=== PATIENT | male | born 1995 | race Caucasian/White ===

== ENCOUNTER 2017-07-22 21:28 | Emergency (ER) | payer OTHER ==
[~2017-07-22] VITALS: Ht 167.6 cm; Wt 74.1 kg
[2017-07-23] MEDS ORDERED: BACITRACIN 0.9 GM PACKET OINTMENT TP ONE (00:30)
[2017-07-23] MEDS ORDERED: PERTUSS(ACELL),DIPH,TET VAC/PF 0.5 ML VIAL IM ONE (00:30)
[2017-07-23] MEDS ORDERED: BUPIVACAINE HCL/PF 0.25% 10 ML VIAL INJ ONE (00:30)
[2017-07-23 01:24] VITALS: BP 141/93
== END 2017-07-23 01:31 | disposition home or self-care (01) ==
LOC: EMS 21:31
DX: S01.81XA Laceration without foreign body of other part of head, initial encounter (principal); F17.200 Nicotine dependence, unspecified, uncomplicated; W01.0XXA Fall on same level from slipping, tripping and stumbling without subsequent striking against object, initial encounter; Y93.89 Activity, other specified; Y92.89 Other specified places as the place of occurrence of the external cause; Y99.8 Other external cause status
CPT/HCPCS: 90715; J3490; 12011; 90471; 99283

== ENCOUNTER 2022-03-30 12:11 | Emergency (ER) | payer MEDICAID, OTHER ==
[~2022-03-30] VITALS: Ht 170.2 cm; Wt 81.0 kg
[2022-03-30 12:52] LABS: HEMATOCRIT 45.7 % (41-53); HEMOGLOBIN 15.8 g/dL (13.5-17.5); LYMPHOCYTES % (AUTO) 23.8 % (22.0-44.0); MEAN CORPUSCULAR HEMOGLOBIN 28.8 pg (26.0-34.0); MEAN CORPUSCULAR HGB CONC 34.6 G/dL (31.0-37.0); MEAN CORPUSCULAR VOLUME 83 fL (80-100); MONOCYTES # (AUTO) 0.4 K/uL (0.1-1.0); MONOCYTES % (AUTO) 8.1 % (2.0-9.0); NEUTROPHILS # (AUTO) 2.7 K/uL (1.8-7.7); NEUTROPHILS % (AUTO) 62.1 % (40.0-70.0); PLATELET COUNT (AUTO) 168 K/uL (150-450); RED CELL DISTRIBUTION WIDTH 14.3 % (11.5-14.5)
[2022-03-30 13:01] LABS: ANION GAP 8 mmol/L (8-16); CALCIUM, TOTAL 9.2 mg/dL (8.8-10.5); CARBON DIOXIDE 29 mmol/L (22-29); CHLORIDE 103 mmol/L (98-107); CREATININE 0.83 mg/dL (0.60-1.30); GLOMERULAR FILTR. RATE CALC > 60 mL/min (>60); GLUCOSE,RANDOM 96 mg/dL (70-110); POTASSIUM 4.6 mmol/L (3.5-5.1); SODIUM SERUM 140 mmol/L (136-145); UREA NITROGEN, BLOOD 16 mg/dL (7-18)
[2022-03-30 13:11] LABS: ALANINE AMINOTRANSFERASE 57 U/L (12-78); ALKALINE PHOSPHATASE 85 U/L (46-116); ASPARTATE AMINOTRANSFERASE 23 U/L (15-37); BILIRUBIN,TOTAL 0.8 mg/dL (0.1-1.0); TOTAL PROTEIN, SERUM 7.7 g/dL (6.4-8.2)
[2022-03-30 13:53] VITALS: BP 146/78
== END 2022-03-30 14:30 | disposition home or self-care (01) ==
LOC: EMS 12:11
DX: R07.89 Other chest pain (principal); F12.90 Cannabis use, unspecified, uncomplicated; J98.01 Acute bronchospasm; F17.210 Nicotine dependence, cigarettes, uncomplicated
CPT/HCPCS: 71045; 80053; 84484; 85025; 93005; 99285; 36415-L1; 36415-TC

== ENCOUNTER 2024-07-17 00:49 | Inpatient (IN) | payer MEDICAID, OTHER ==
[~2024-07-17] VITALS: Ht 170.2 cm; Wt 81.6 kg
[2024-07-17 02:16] LABS: HEMATOCRIT 48.1 % (41-53); MEAN CORPUSCULAR HGB CONC 33.8 G/dL (31.0-37.0)
[2024-07-17 02:19] LABS: ANION GAP 12 mmol/L (8-16); CALCIUM, TOTAL 9.4 mg/dL (8.8-10.5); CARBON DIOXIDE 27 mmol/L (22-29); CHLORIDE 102 mmol/L (98-107); CREATININE 0.79 mg/dL (0.60-1.30); GLOMERULAR FILTR. RATE CALC > 60 mL/min (>60); GLUCOSE,RANDOM 96 mg/dL (70-110); POTASSIUM 4.2 mmol/L (3.5-5.1); SODIUM SERUM 141 mmol/L (136-145); UREA NITROGEN, BLOOD 10 mg/dL (7-18)
[2024-07-17 02:25] LABS: EOSINOPHILS % (AUTO) 0 % (1.0-6.0); HEMOGLOBIN 16.3 g/dL (13.5-17.5); LYMPHOCYTES # (AUTO) 2.9 K/uL (1.0-4.8); LYMPHOCYTES % (AUTO) 33.3 % (22.0-44.0); MEAN CORPUSCULAR HEMOGLOBIN 29.3 pg (26.0-34.0); MEAN CORPUSCULAR VOLUME 87 fL (80-100); MONOCYTES # (AUTO) 5.7 K/uL (0.1-1.0); MONOCYTES % (AUTO) 66.7 % (2.0-9.0); PLATELET COUNT (AUTO) 235 K/uL (150-450); RED BLOOD CELL COUNT(AUTO) 5.56 MIL/uL (4.50-5.90); RED CELL DISTRIBUTION WIDTH 13.8 % (11.5-14.5); WHITE BLOOD COUNT (AUTO) 8.6 K/uL (4.5-11.0)
[2024-07-17 02:27] LABS: ALCOHOL, BLOOD (SERUM) 106 mg/dL (0-10)
[2024-07-17 02:41] LABS: COVID AG,FIA SOURCE NASAL SWAB
[2024-07-17 03:02] LABS: PH,URINE DRUG SCREEN 5.5 (5.0-8.0)
[2024-07-17 03:08] LABS: ALCOHOL, URINE DRUG SCREEN POSITIVE (NEGATIVE); AMPHET/METH SCREEN,URINE NEGATIVE (NEGATIVE); BARBITURATE SCREEN, URINE NEGATIVE (NEGATIVE); BENZODIAZEPINES SCREEN,URINE NEGATIVE (NEGATIVE); CANNABINOID SCREEN,URINE POSITIVE (NEGATIVE); COCAINE SCREEN,URINE POSITIVE (NEGATIVE); METHADONE SCREEN, URINE NEGATIVE (NEGATIVE); OPIATE SCREEN,URINE NEGATIVE (NEGATIVE); PHENCYCLIDINE SCREEN,URINE NEGATIVE (NEGATIVE)
[2024-07-17 03:19] LABS: SARS-COV2 (COVID) ANTIGEN,FIA Negative (Negative)
[2024-07-17] MEDS: LIDOCAINE 1% 10 ML VIAL SQ ONE (04:35)
[2024-07-17] MEDS: PERTUSS(ACELL),DIPH,TET/PF 0.5 ML SYRINGE [ADULT] IM. ONE (04:39)
[2024-07-17] MEDS: BACITRACIN ZINC/POLYMYXIN B 14.2 GM OINTMENT TP ONE ×2 (05:11→05:21)
[2024-07-17] MEDS: BACITRACIN 0.9 GM PACKET OINTMENT TP ONE (05:21)
[2024-07-17 05:56] VITALS: O2SAT 96
[2024-07-17] MEDS ORDERED: HALOPERIDOL 5 MG TABLET PO PRN (12:00)
[2024-07-17] MEDS ORDERED: LORazepam 2 MG TABLET PO PRN (12:00)
[2024-07-17] MEDS ORDERED: ZOLPIDEM TARTRATE 10 MG TABLET PO PRN (12:00)
[2024-07-17 18:21] VITALS: BP 114/78; PULSE 70; RESP 18; TEMP 97.4; O2SAT 98
[2024-07-17] MEDS ORDERED: ALBUTEROL SULFATE HFA 90 MCG/PUFF 8 GM INHALER IH PRN (19:15)
[2024-07-17] MEDS ORDERED: ONDANSETRON 4 MG TABLET PO PRN (19:15)
[2024-07-17] MEDS ORDERED: DOCUSATE SODIUM 100 MG CAPSULE PO PRN (19:15)
[2024-07-17] MEDS ORDERED: PETROLATUM,WHITE 28 GM JELLY TP PRN (19:15)
[2024-07-17] MEDS ORDERED: MAG HYDROX/ALUMINUM HYD/SIMETH ES 30 ML SUSPENSION UDCUP PO PRN (19:15)
[2024-07-17] MEDS ORDERED: OMEPRAZOLE 20 MG CAPSULE PO PRN (19:15)
[2024-07-17] MEDS ORDERED: CloNIDine HCL 0.1 MG TABLET PO PRN (19:15)
[2024-07-17] MEDS ORDERED: BACITRACIN 28 GM OINTMENT TP PRN (19:15)
[2024-07-17] MEDS ORDERED: LOPERAMIDE HCL 2 MG CAPSULE PO PRN (19:15)
[2024-07-17] MEDS ORDERED: MAGNESIUM HYDROXIDE SUSPENSION 30 ML UDCUP PO PRN (19:15)
[2024-07-17] MEDS ORDERED: BENZOCAINE/MENTHOL LOZENGE PO PRN (19:15)
[2024-07-17] MEDS ORDERED: IBUPROFEN 600 MG TABLET PO PRN (19:15)
[2024-07-17] MEDS ORDERED: ACETAMINOPHEN 325 MG TABLET PO PRN (19:15)
[2024-07-17 20:36] VITALS: BP 132/80; PULSE 92; RESP 18; TEMP 96.9; O2SAT 98
[2024-07-18 08:54] VITALS: BP 118/77; PULSE 86; RESP 17; TEMP 97.6; O2SAT 95
== END 2024-07-18 11:15 | disposition home or self-care (01) | DRG 754 ==
LOC: EMS 00:49 → B2S 13:18
PROVIDERS: ADMIT Psychiatry & Neurology Psychiatry; ATTEND Psychiatry & Neurology Psychiatry
DX: F32.9 Major depressive disorder, single episode, unspecified (principal); R45.851 Suicidal ideations; F10.129 Alcohol abuse with intoxication, unspecified; F41.9 Anxiety disorder, unspecified; G47.00 Insomnia, unspecified; Z20.822 Contact with and (suspected) exposure to COVID-19; K59.00 Constipation, unspecified; Y90.5 Blood alcohol level of 100-119 mg/100 ml; Z87.891 Personal history of nicotine dependence; S61.519A Laceration without foreign body of unspecified wrist, initial encounter
CPT/HCPCS: 80048; 80307; 85025; 90715; 99285; G0480; J3490